=== PATIENT | male | born 1970 | race Caucasian/White ===

== ENCOUNTER 2021-01-21 21:00 | Day surgery (SDCO) | payer OTHER ==
[~2021-01-21] VITALS: Ht 167.6 cm; Wt 119.7 kg
[2021-01-21 21:26] LABS: BASOPHIL 0.5 % (0-2); EOSINOPHIL 3.2 % (0-5); HCT 44.4 % (42.0-52.0); LYMPHOCYTE 27.6 % (15-48); MCH 28.7 pg (25.0-31.0); MCHC 33.8 g/dL (32.0-36.0); MCV 85.1 fL (78.0-100.0); MONOCYTE 8.5 % (0-12); MPV 10.3 fL (6.0-9.5); NEUTROPHIL 59.9 % (41-80); NRBC 0; PLT 181 K/uL (150-400); RBC 5.22 M/uL (4.70-6.00); RDW 13.4 % (11.5-14.0); WBC 7.3 K/uL (4.0-10.5)
[2021-01-21 21:30] LABS: INR 1.05 (0.9-1.2); PROTHROMBIN TIME 13.1 SECONDS (11.8-13.4)
[2021-01-21 21:43] LABS: ALBUMIN 3.9 g/dL (3.4-5.0); BILIRUBIN - TOTAL 0.3 mg/dL (0.2-1.0); BUN/CREAT RATIO (CALC) 14.3 RATIO; CREATININE 0.98 mg/dL (0.67-1.17); GLOBULIN (CALCULATION) 3.3 g/dL; POTASSIUM 3.6 mmol/L (3.5-5.1); TOTAL PROTEIN 7.2 g/dL (6.4-8.2)
[2021-01-21 21:50] LABS: PRO-BNP 64 pg/mL (<125)
[2021-01-22] MEDS ORDERED: LIPITOR40 MG PO (02:23)
[2021-01-22] MEDS ORDERED: EFFIENT10 MG PO (02:23)
[2021-01-22] MEDS ORDERED: LOPRESSOR25 MG PO (02:24)
[2021-01-22] MEDS ORDERED: NORVASC2.5 MG PO (02:24)
[2021-01-22] MEDS ORDERED: PROTONIX 40MG T40 MG PO (02:24)
[2021-01-22] MEDS ORDERED: PRINIVIL20 MG PO (02:25)
[2021-01-22] MEDS ORDERED: HYDROCHLOROTHIA25 MG PO (02:25)
[2021-01-22 02:39] LABS: MAGNESIUM 1.8 mg/dL (1.8-2.4)
[2021-01-22 06:43] LABS: BASOPHIL 0.6 % (0-2); EOSINOPHIL 3.2 % (0-5); HCT 44.1 % (42.0-52.0); HGB 14.6 g/dl (13.2-18.0); LYMPHOCYTE 29.6 % (15-48); MCH 28.4 pg (25.0-31.0); MCHC 33.1 g/dL (32.0-36.0); MCV 85.8 fL (78.0-100.0); MONOCYTE 11.4 % (0-12); MPV 10.3 fL (6.0-9.5); NEUTROPHIL 54.9 % (41-80); NRBC 0; PLT 175 K/uL (150-400); RBC 5.14 M/uL (4.70-6.00); RDW 13.3 % (11.5-14.0); WBC 7.7 K/uL (4.0-10.5)
[2021-01-22 07:26] LABS: CKMB 1.9 ng/mL (0.0-3.6)
[2021-01-22 08:30] LABS: ALBUMIN 3.2 g/dL (3.4-5.0); BILIRUBIN - TOTAL 0.3 mg/dL (0.2-1.0); BUN/CREAT RATIO (CALC) 14.6 RATIO; CREATININE 0.89 mg/dL (0.67-1.17); GLOBULIN (CALCULATION) 3.1 g/dL; POTASSIUM 3.7 mmol/L (3.5-5.1); TOTAL PROTEIN 6.3 g/dL (6.4-8.2)
--- NOTE | 2021-01-22 08:33 | NUR ---
DR ROBLES WROTE AN ORDER FOR PT TO BE PLACED ON AN AMIODARONE DRIP INSTEAD OF A CARDIZEM DRIP. PT THEN CONVERTED TO NORMAL SINUS RYHTHM AND DR ROBLES STATED TO NOT START THE AMIODARONE DRIP AND DC THE CARDIZEM DRIP
--- NOTE | 2021-01-23 11:20 | NUR ---
DISCHARGE ORDERS RECEIVED. IV DC'D. PT VERBALIZED UNDERSTANDING OF ALL DISCHARGE ORDERS. PT TO BE PICKED UP BY HIS BOSS. PT TO PT PICKUP VIA WHEELCHAIR.
== END 2021-01-23 12:00 | disposition home or self-care (01) ==
LOC: FER 21:00 → FTCU 01-22 00:49
PROVIDERS: Emergency Medicine; Nurse Practitioner; ADMIT Internal Medicine
DX: I21.A1 Myocardial infarction type 2 (principal); I48.91 Unspecified atrial fibrillation; I11.0 Hypertensive heart disease with heart failure; I50.9 Heart failure, unspecified; I95.9 Hypotension, unspecified; E78.5 Hyperlipidemia, unspecified; R94.31 Abnormal electrocardiogram [ECG] [EKG]; Z79.899 Other long term (current) drug therapy; Z20.822 Contact with and (suspected) exposure to COVID-19; Z88.0 Allergy status to penicillin; Z95.5 Presence of coronary angioplasty implant and graft; I25.10 Atherosclerotic heart disease of native coronary artery without angina pectoris
CPT/HCPCS: 36415; 71045; 80053; 80061; 82553; 83036; 83735; 83880; 84439; 84443; 84484; 85025; 85610; 93005; G0378; J1650; U0002